=== PATIENT | female | born 1975 | race Two or more races ===

== ENCOUNTER 2020-12-21 12:14 | Outpatient (REF) | payer MEDICAID, SELFPAY | END 2020-12-21 12:15 | disposition home or self-care (01) | LOC: HO.LAB 12:14 | PROVIDERS: Visit Provider Internal Medicine | DX: Z20.822 Contact with and (suspected) exposure to COVID-19 (principal) | CPT/HCPCS: C9803; U0003; U0005 ==

== ENCOUNTER 2021-01-27 09:30 | Emergency (ER) | payer MEDICAID, SELFPAY ==
--- NOTE | ~2021-01-27 | CT_ITS ---
EXAMINATION: CT ABDOMEN AND PELVIS WITH CONTRAST CLINICAL INFORMATION: Left flank pain COMPARISON: None TECHNIQUE: Multidetector volumetric images were obtained from the superior aspect of the liver through the pubic symphysis following administration 85 mL of Omnipaque 350 intravenous contrast. Sagittal and coronal reformatted images were obtained on the technologist's workstation. Oral contrast: No This CT examination was performed using dose optimization techniques as appropriate, variously including the following: *Automated exposure control *Adjustment of mA and/or kV according to patient size (this includes techniques or standardized protocols for targeted exams where dose is matched to indication/reason for exam; i.e. extremities or head) *Use of iterative reconstruction technique DLP: 455 mGy-cm FINDINGS: LUNG BASES: Bibasilar atelectasis. The visualized cardiac structures are unremarkable. LIVER, GALLBLADDER, AND BILIARY TREE: The liver is normal in size, shape, and attenuation. No focal hepatic lesion or biliary ductal dilatation is present. The gallbladder is unremarkable with no evidence of radiopaque gallstones, gallbladder wall thickening, or obvious pericholecystic inflammatory changes. PANCREAS: Unremarkable. SPLEEN: Unremarkable. ADRENAL GLANDS: Unremarkable. KIDNEYS AND URETERS: The kidneys are normal in size, shape, and attenuation. No hydronephrosis, hydroureter, or calculi seen. No perinephric stranding. BLADDER: Unremarkable. GASTROINTESTINAL TRACT: The stomach is unremarkable. Normal caliber small bowel. No obstruction. No colonic wall thickening or inflammatory change. Normal appendix. No free air or free fluid. ABDOMINAL WALL: No significant hernia is appreciated. LYMPH NODES: Normal. VASCULAR: Unremarkable. PELVIC VISCERA: The uterus and adnexa are unremarkable. OSSEOUS STRUCTURES: No acute or suspicious osseous abnormality. Mild degenerative changes of the spine. CT/CT abdomen pelvis w con IMPRESSION: No acute findings in the abdomen or pelvis. No inflammatory changes.
[2021-01-27 09:53] VITALS: BP 142/118; PULSE 78; RESP 16; TEMP 36.8; O2SAT 98; BMI 26.4
[2021-01-27 10:12] LABS: Appearance Urine HAZY; Color Urine YELLOW; Glucose Urine UA NEG (NEG); Leukocyte Esterase Urine NEG (NEG); Nitrite Urine NEG (NEG); Specific Gravity - Urine >= 1.030 (1.005-1.025); UPreg QC Valid YES; Urine Blood NEG (NEG); Urine Ketones NEG (NEG); Urine Pregnancy NEGATIVE (NEGATIVE); Urine Protein NEG (NEG-TRACE)
[2021-01-27] MEDS: 0.9 % Sodium Chloride 1,000 ML 999 ML IV (10:19)
[2021-01-27] MEDS: Ketorolac Tromethamine 15 MG/ML VIAL 30 MG IVPUSH (10:21)
[2021-01-27 10:24] LABS: MANUAL DIFF FLAG NO
[2021-01-27 10:25] LABS: Basophils Percent Auto 0.5 % (0-2); Eosinophils Absolute Auto 0.4 X10*3/uL (0.0-0.4); Eosinophils Percent Auto 4.9 % (0-4); Hematocrit 34.5 % (37.0-47.0); Hemoglobin 11.4 g/dl (12.0-16.0); Imm Gran Abs Auto 0.02 X10*3/uL (0.00-0.03); Imm Gran Pct Auto 0.2 % (0.0-0.4); Lymphocytes Absolute Auto 2.1 X10*3/uL (1.2-4.9); Lymphocytes Percent Auto 24.9 % (20-40); Mean Corpuscular Hemoglobin 31.1 pg (27.0-33.0); Mean Corpuscular Volume 94.3 fL (80.0-98.0); Mean Platelet Volume 9.6 fL (9.4-12.3); Monocytes Absolute Auto 0.8 X10*3/uL (0.1-1.2); Monocytes Percent Auto 9.8 % (2-11); Neutrophils Percent Auto 59.7 % (45-73); Platelet Count 294 X10*3/uL (160-400); Red Blood Count 3.66 X10*6/uL (4.20-5.50); Red Cell Distribution Width 12.3 % (11.0-16.0); White Blood Count 8.4 X10*3/uL (4.8-10.8)
[2021-01-27 10:44] LABS: Alanine Aminotransferase 11 U/L (0-31); Albumin Level 3.8 g/dL (3.5-5.0); Alkaline Phosphatase 57 U/L (39-117); Anion Gap 10 (12-20); Aspartate Amino Transferase 16 U/L (5-31); Bilirubin Total 0.2 mg/dL (0.0-1.0); Blood Urea Nitrogen 9 mg/dL (9-16); Calcium 8.6 mg/dL (8.4-10.2); Carbon Dioxide 27 mmol/L (22-29); Chloride 105 mmol/L (96-108); Creatinine Clr Calc Pharmacy 59.2; Estimated Glomerular Filt Rate > 60; Glucose Random 86 mg/dL (60-115); Potassium 4.2 mmol/L (3.3-5.1); Sodium 138 mmol/L (135-145); Total Protein 6.5 g/dL (6.5-8.0)
--- NOTE | 2021-01-27 11:29 | ED_ITS ---
HPI - Female Genitourinary General Chief complaint: Urogenital-Female Stated complaint: flank pain, pain when urinating Time Seen by Provider: 01/27/21 09:49 Source: patient Mode of arrival: ambulatory Limitations: no limitations History of Present Illness HPI Narrative: Patient presents to ED for left flank radiating to lower abdomen with dysuria for the past 2 days. Patient has history of recurring kidney stone s. Patient states last kidney stone was around 10 years ago. Patient denies any chest pain, shortness of breath, vaginal bleeding, any recent trauma. Patient denies any diarrhea. Patient denies any vaginal discharge, vaginal bleeding, or vaginal lesions. Related Data Previous Rx's Medication Instructions Recorded cyclobenzaprine 10 mg tablet 10 mg PO TID PRN #18 tab 01/27/21 naproxen 500 mg tablet 500 mg PO BID PRN #20 tab 01/27/21 Allergies Allergy/AdvReac Type Severity Reaction Status Date / Time metoclopramide [From REGLAN] Allergy Intermediate ANAPHYLAXIS Unverified 12/10/19 19:47 Review of Systems Review of Systems: Yes all other systems are reviewed and are negative Constitutional: Constitutional: Reports as per HPI and Reports no additional constitutional complaints Eyes: Eyes: Reports as per HPI and Reports no additional eye complaints ENT: Reports system reviewed and no additional complaints, except as documented and Reports as per HPI Cardiovascular: Cardiovascular: Reports as per HPI and Reports no additional cardiovascular complaints Respiratory: Respiratory: Reports as per HPI and Reports no additional respiratory complaints Gastrointestinal: Gastrointestinal: Reports as per HPI, Reports no additional gastrointestinal complaints and Reports abdominal pain (Left flank pain) Genitourinary: Genitourinary: Reports no additional female genitourinary complaints and Reports as per HPI Musculoskeletal: Musculoskeletal: Reports no additional musculoskeletal complaints and Reports as per HPI Neurologic: Reports system reviewed and no additional complaints, except as documented and Reports as per HPI Psychiatric: Psychiatric: Reports no additional psychiatric complaints and Reports as per HPI [facility] Social History Social History Advance Directives: No Advance Directives Information Provided: Yes Advance Directives on File: No Physical Exam Vital Signs: Vital Signs: Last Vital Signs Temp 98.2 F 01/27/21 12:00 Pulse 78 01/27/21 12:00 Resp 18 01/27/21 12:00 BP 138/89 01/27/21 12:00 Pulse Ox 98 01/27/21 12:00 Body Mass Index 26.4 Const: General: cooperative, healthy appearing, comfortable, no acute distress, well developed, alert, awake and Physically active Orientation/consciousness: patient oriented x3 HENMT: Head: Yes normal to inspection, Yes No palpable skull fracture present, Yes normocephalic, Yes atraumatic and No abrasion Eyes: General: appearance normal, both eyes and all related structures Neck: Neck: Yes normal visual inspection, Yes full ROM, Yes no lymphadenopathy, Yes no meningeal signs, Yes trachea midline, Yes supple and No tender Chest: Chest palpation & inspection: normal inspection of the chest and normal palpation of entire chest wall Resp: Effort & Inspection: normal respiratory effort and able to speak in complete sentences Auscultation: clear to auscultation bilaterally Cardio: Jugular venous distension: no JVD Heart sounds: S1 normal heart sound present and S2 normal heart sound present GI: Inspection: Yes normal to inspection and No abdominal wall ecchymosis Palpation (GI): Soft to palpation, not firm, nontender, no guarding and not rigid : General: Yes CVA tenderness (left CVA) Back/Spine/Pelvis: Back: CVA tenderness (left CVA) Skin: General skin exam: no rashes or lesions noted and elasticity normal Neuro: General: patient oriented x3, gait normal, no meningeal signs and CN's II-XI intact bilaterally Cranial nerves: Yes CN's II-XII intact bilaterally Extrem: General: Yes normal to inspection and Yes full ROM Psych: Appearance: grossly normal, well kempt and not disheveled Course Course Course Narrative: Patient will have labs done and urine given pain medication. Also will be sent for CT scan. Reevaluation(s) Reevaluation #1: UA negative for blood per was sent for CT scan with IV contrast. Time: 11:50 Reevaluation #2: Labs are normal. Kidney function is normal. UA negative for UTI or blood. CT scan negative for kidney stones or any other etiology. Patient will be discharged with pain medications and muscle relaxer. Patient told to follow-up with PCP. Time: 13:42 MDM - Female Genitourinary MDM Narrative Medical decision making narrative: Flank pain Lab Data Result diagrams: 01/27/21 10:18 01/27/21 10:18 Labs: Lab Results 01/27/21 01/27/21 01/27/21 Range/Units 09:58 09:58 10:18 WBC 8.4 (4.8-10.8) X10*3/uL RBC 3.66 L (4.20-5.50) X10*6/uL Hgb 11.4 L (12.0-16.0) g/dl Hct 34.5 L (37.0-47.0) % MCV 94.3 (80.0-98.0) fL MCH 31.1 (27.0-33.0) pg MCHC 33.0 (31.0-35.0) g/dl RDW 12.3 (11.0-16.0) % Plt Count 294 (160-400) X10*3/uL MPV 9.6 (9.4-12.3) fL Immature Gran % (Auto) 0.2 (0.0-0.4) % Neut % (Auto) 59.7 (45-73) % Lymph % (Auto) 24.9 (20-40) % [place] % (Auto) 9.8 (2-11) % Eos % (Auto) 4.9 H (0-4) % Baso % (Auto) 0.5 (0-2) % Lymph # (Auto) 2.1 (1.2-4.9) X10*3/uL [place] # (Auto) 0.8 (0.1-1.2) X10*3/uL Eos # (Auto) 0.4 (0.0-0.4) X10*3/uL Baso # (Auto) 0.0 (0.0-0.2) X10*3/uL Abs Immat Gran (auto) 0.02 (0.00-0.03) X10*3/uL Absolute Neuts (auto) 5.0 (2.0-8.3) x10*3/uL Absolute Nucleated RBC 0.000 (0.0-0.012) X10*3/uL Nucleated RBC % (auto) 0.0 (0.0-0.2) /100WBC Sodium (135-145) mmol/L Potassium (3.3-5.1) mmol/L Chloride (96-108) mmol/L Carbon Dioxide (22-29) mmol/L Anion Gap (12-20) BUN (9-16) mg/dL Creatinine (0.5-1.4) mg/dL Estim Creat Clear Calc Estimated GFR Random Glucose (60-115) mg/dL Calcium (8.4-10.2) mg/dL Total Bilirubin (0.0-1.0) mg/dL AST (5-31) U/L ALT (0-31) U/L Alkaline Phosphatase (39-117) U/L Total Protein (6.5-8.0) g/dL Albumin (3.5-5.0) g/dL Urine Color YELLOW Urine Appearance HAZY Urine pH 6.0 (5.0-8.0) Ur Specific [place] >= 1.030 H (1.005-1.025) Urine Protein NEG (NEG-TRACE) MG/DL Urine Glucose (UA) NEG (NEG) MG/DL Urine Ketones NEG (NEG) MG/DL Urine Blood NEG (NEG) Urine Nitrite NEG (NEG) Ur Leukocyte Esterase NEG (NEG) Urine Test NEGATIVE (NEGATIVE) 01/27/21 Range/Units 10:18 WBC (4.8-10.8) X10*3/uL RBC (4.20-5.50) X10*6/uL Hgb (12.0-16.0) g/dl Hct (37.0-47.0) % MCV (80.0-98.0) fL MCH (27.0-33.0) pg MCHC (31.0-35.0) g/dl RDW (11.0-16.0) % Plt Count (160-400) X10*3/uL MPV (9.4-12.3) fL Immature Gran % (Auto) (0.0-0.4) % Neut % (Auto) (45-73) % Lymph % (Auto) (20-40) % [place] % (Auto) (2-11) % Eos % (Auto) (0-4) % Baso % (Auto) (0-2) % Lymph # (Auto) (1.2-4.9) X10*3/uL [place] # (Auto) (0.1-1.2) X10*3/uL Eos # (Auto) (0.0-0.4) X10*3/uL Baso # (Auto) (0.0-0.2) X10*3/uL Abs Immat Gran (auto) (0.00-0.03) X10*3/uL Absolute Neuts (auto) (2.0-8.3) x10*3/uL Absolute Nucleated RBC (0.0-0.012) X10*3/uL Nucleated RBC % (auto) (0.0-0.2) /100WBC Sodium 138 (135-145) mmol/L Potassium 4.2 (3.3-5.1) mmol/L Chloride 105 (96-108) mmol/L Carbon Dioxide 27 (22-29) mmol/L Anion Gap 10 L (12-20) BUN 9 (9-16) mg/dL Creatinine 1.00 (0.5-1.4) mg/dL Estim Creat Clear Calc 59.2 Estimated GFR > 60 Random Glucose 86 (60-115) mg/dL Calcium 8.6 (8.4-10.2) mg/dL Total Bilirubin 0.2 (0.0-1.0) mg/dL AST 16 (5-31) U/L ALT 11 (0-31) U/L Alkaline Phosphatase 57 (39-117) U/L Total Protein 6.5 (6.5-8.0) g/dL Albumin 3.8 (3.5-5.0) g/dL Urine Color Urine Appearance Urine pH (5.0-8.0) Ur Specific [place] (1.005-1.025) Urine Protein (NEG-TRACE) MG/DL Urine Glucose (UA) (NEG) MG/DL Urine Ketones (NEG) MG/DL Urine Blood (NEG) Urine Nitrite (NEG) Ur Leukocyte Esterase (NEG) Urine Test (NEGATIVE) Discharge Plan Discharge Clinical Impression: Flank pain Patient Disposition: Home, Self-Care Instructions: Flank Pain (ED) Additional Instructions: Your blood work came back normal. Urine negative for infection. CT scan came back negative for kidney stones or any kidney infection. You will be discharged with pain medication and muscle relaxer. Return to the ED immediately for worsening flank pain, blood in stool, shortness of breath, on flank pain, chest pain, hematuria, vaginal bleeding, vaginal discharge, abdominal pain, or any other concerning symptoms. Prescriptions: New naproxen 500 mg tablet 500 mg PO BID PRN (Reason: pain) Qty: 20 RF: 0 cyclobenzaprine 10 mg tablet 10 mg PO TID PRN (Reason: muscle spasm) Qty: 18 RF: 0 Stand Alone Forms: Work/School Release Interventions: ED Discharge Assessment Last Done: 01/27/21 14:17 Discharge Date/Time: 01/27/21 14:19 Print Language: Greek
[2021-01-27] MEDS: iohexoL 350 MG/ML 100 ML INFUS..BTL IV (11:43)
[2021-01-27 12:00] VITALS: BP 138/89; PULSE 78; RESP 18; TEMP 36.8; O2SAT 98
--- NOTE | 2021-01-27 12:48 | PC.NURSE ---
PT STATES FEELING BETTER, PAIN MOSTLY RESOLVED, CT COMPLETE, LABS ARE UNREMARKABLE. PROVIDER WILL UPDATE PATIENT WITH RESULTS
== END 2021-01-27 14:19 | disposition home or self-care (01) ==
PROVIDERS: Physician Assistant; Emergency Provider Emergency Medicine
DX: R10.9 Unspecified abdominal pain (principal); R30.0 Dysuria
CPT/HCPCS: 36415; 74177; 80053; 81003; 81025; 85025; 96361; 96374; 99284; J1885; Q9967

== ENCOUNTER 2021-09-23 01:14 | Emergency (ER) | payer MEDICAID, SELFPAY ==
--- NOTE | 2021-09-23 | ECG_ITS ---
Test Reason : chest pain Blood Pressure : / mmHG Vent. Rate : 083 BPM Atrial Rate : 083 BPM P-R Int : 122 ms QRS Dur : 092 ms QT Int : 408 ms P-R-T Axes : 053 013 044 degrees QTc Int : 479 ms Normal sinus rhythm Normal ECG No previous ECGs available Referred By: Generic ED Physician Electronically Signed By:KEO DUPREE
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
--- NOTE | ~2021-09-23 | XR_ITS ---
EXAMINATION: XR CHEST CLINICAL INFORMATION: Chest pain COMPARISON: None TECHNIQUE: Frontal view of the chest was obtained. FINDINGS: The lungs are well expanded. There is no focal consolidation, edema, or effusion. No pneumothorax. The cardiomediastinal silhouette is within normal limits. No acute osseous abnormality. There is a corticated ossific density in the right subcoracoid bursa, likely an intra-articular body. This measures 1.8 cm. XR/XR chest 1V IMPRESSION: Clear lungs.
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
[2021-09-23 01:26] VITALS: BP 157/87; PULSE 96; RESP 20; TEMP 36.6; O2SAT 98; BMI 27.3
[2021-09-23 01:51] LABS: MANUAL DIFF FLAG NO
[2021-09-23 01:53] LABS: Basophils Absolute Auto 0.1 X10*3/uL (0.0-0.2); Basophils Percent Auto 0.7 % (0-2); Eosinophils Absolute Auto 0.2 X10*3/uL (0.0-0.4); Eosinophils Percent Auto 2.5 % (0-4); Hematocrit 35.1 % (37.0-47.0); Hemoglobin 11.7 g/dl (12.0-16.0); Imm Gran Abs Auto 0.02 X10*3/uL (0.00-0.03); Imm Gran Pct Auto 0.3 % (0.0-0.4); Lymphocytes Percent Auto 27.4 % (20-40); Mean Corpuscular HGB Conc 33.3 g/dl (31.0-35.0); Mean Corpuscular Hemoglobin 30.2 pg (27.0-33.0); Mean Corpuscular Volume 90.7 fL (80.0-98.0); Mean Platelet Volume 9.4 fL (9.4-12.3); Monocytes Absolute Auto 0.7 X10*3/uL (0.1-1.2); Monocytes Percent Auto 9.6 % (2-11); Neutrophils Absolute Auto 4.3 x10*3/uL (2.0-8.3); Neutrophils Percent Auto 59.5 % (45-73); Platelet Count 343 X10*3/uL (160-400); Red Blood Count 3.87 X10*6/uL (4.20-5.50); Red Cell Distribution Width 12.7 % (11.0-16.0); White Blood Count 7.3 X10*3/uL (4.8-10.8)
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
[2021-09-23 02:08] LABS: Anion Gap 10 (12-20); Blood Urea Nitrogen 15 mg/dL (9-16); Calcium 9.6 mg/dL (8.4-10.2); Carbon Dioxide 30 mmol/L (22-29); Chloride 104 mmol/L (96-108); Creatinine Clr Calc Pharmacy 64.2; Estimated Glomerular Filt Rate > 60; Glucose Random 90 mg/dL (60-115); Potassium 4.4 mmol/L (3.3-5.1); Sodium 140 mmol/L (135-145)
== END 2021-09-23 03:48 | disposition home or self-care (01) ==
PROVIDERS: Emergency Provider Emergency Medicine
DX: S20.212A Contusion of left front wall of thorax, initial encounter (principal); S16.1XXA Strain of muscle, fascia and tendon at neck level, initial encounter; V43.52XA Car driver injured in collision with other type car in traffic accident, initial encounter; Y93.89 Activity, other specified; Y92.414 Local residential or business street as the place of occurrence of the external cause; Y99.9 Unspecified external cause status
CPT/HCPCS: 36415; 71045; 71250; 72125; 80048; 85025; 93005; 99283; 99284

== ENCOUNTER 2021-10-23 12:29 | Emergency (ER) | payer MEDICAID, SELFPAY | END 2021-10-23 16:02 | disposition left against medical advice (07) | PROVIDERS: Emergency Provider Emergency Medicine | DX: R51.9 Headache, unspecified (principal) ==

== ENCOUNTER 2021-11-17 15:20 | Emergency (ER) | payer MEDICAID, SELFPAY | END 2021-11-17 17:51 | disposition left against medical advice (07) | PROVIDERS: Emergency Provider Emergency Medicine | DX: R25.2 Cramp and spasm (principal) ==

== ENCOUNTER 2021-12-29 16:33 | Emergency (ER) | payer MEDICAID, SELFPAY | END 2021-12-29 20:43 | disposition left against medical advice (07) | PROVIDERS: Emergency Provider Emergency Medicine | DX: Z04.9 Encounter for examination and observation for unspecified reason (principal) ==

== ENCOUNTER 2022-01-26 21:47 | Emergency (ER) | payer MEDICAID, SELFPAY ==
[2022-01-26 21:54] VITALS: BP 129/80; PULSE 80; RESP 18; TEMP 36.1; O2SAT 96; BMI 23.5
== END 2022-01-27 01:58 | disposition left against medical advice (07) ==
PROVIDERS: Emergency Provider Emergency Medicine
DX: R10.30 Lower abdominal pain, unspecified (principal); N92.6 Irregular menstruation, unspecified
CPT/HCPCS: 99281

== ENCOUNTER 2022-02-18 21:50 | Emergency (ER) | payer MEDICAID, SELFPAY | END 2022-02-18 23:00 | disposition left against medical advice (07) | LOC: HO.ED 22:59 | PROVIDERS: Emergency Provider Emergency Medicine | DX: G43.909 Migraine, unspecified, not intractable, without status migrainosus (principal) ==

== ENCOUNTER 2022-03-01 21:50 | Emergency (ER) | payer MEDICAID, SELFPAY | END 2022-03-01 23:07 | disposition left against medical advice (07) | LOC: HO.ED 23:05 | PROVIDERS: Emergency Provider Emergency Medicine | DX: R51.9 Headache, unspecified (principal) ==

== ENCOUNTER 2022-04-12 10:00 | Emergency (ER) | payer MEDICAID, SELFPAY ==
[2022-04-12 10:11] VITALS: BP 130/82; PULSE 100; RESP 19; TEMP 36.6; O2SAT 100; BMI 23.4
--- NOTE | 2022-04-12 11:35 | PC.NURSE ---
pt called from the waiting room for the second time but no answer
== END 2022-04-12 11:53 | disposition left against medical advice (07) ==
LOC: HO.ED 11:50
PROVIDERS: Emergency Provider Emergency Medicine
DX: R51.9 Headache, unspecified (principal)
CPT/HCPCS: 99281

== ENCOUNTER 2022-04-14 11:37 | Emergency (ER) | payer MEDICAID, SELFPAY ==
--- NOTE | ~2022-04-14 | CT_ITS ---
CT HEAD WITHOUT CONTRAST CLINICAL INFORMATION: Headache. COMPARISON: None available. TECHNIQUE: Contiguous axial imaging was performed from the skull base to vertex without intravenous administration of contrast. This CT examination was performed using dose optimization techniques as appropriate, variously including the following: *Automated exposure control *Adjustment of mA and/or kV according to patient size (this includes techniques or standardized protocols for targeted exams where dose is matched to indication/reason for exam; i.e. extremities or head) *Use of iterative reconstruction technique FINDINGS: There is no intracranial hemorrhage, hydrocephalus, extra-axial surface collection, midline shift, or other herniation pattern. Garcia to white matter differentiation is diffusely maintained without evidence of an evolved acute territorial infarct. The basilar cisterns are preserved. No significant soft tissue abnormality. No acute osseous abnormality. The paranasal sinuses and the mastoid air cells are well aerated. CT/CT head/brain wo IV con IMPRESSION: No acute intracranial abnormality.
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
[2022-04-14 11:49] VITALS: BP 135/84; PULSE 72; RESP 16; TEMP 36.8; O2SAT 98; BMI 23.4
[2022-04-14] MEDS: Ketorolac Tromethamine 30 MG/ML VIAL IM (13:47)
[2022-04-14] MEDS: Acetaminophen 325 MG TABLET 975 MG PO (13:47)
== END 2022-04-14 14:11 | disposition home or self-care (01) ==
PROVIDERS: Emergency Provider Emergency Medicine
DX: Z04.1 Encounter for examination and observation following transport accident (principal); R51.9 Headache, unspecified; Z79.899 Other long term (current) drug therapy
CPT/HCPCS: 70450; 96372; 99283; 99284; J1885

== ENCOUNTER 2022-05-23 23:52 | Emergency (ER) | payer MEDICAID, SELFPAY ==
[2022-05-24 00:22] VITALS: BP 128/74; PULSE 82; RESP 18; TEMP 36.4; O2SAT 97; BMI 23.4
[2022-05-24 05:27] VITALS: BP 119/69; RESP 16; TEMP 36.2; O2SAT 98
--- NOTE | 2022-05-24 05:28 | MHC.EDTECH ---
PT WAS CALLED BACK TO TRIAGE TO RE CHECK VITALS SIGN ,PT WAS GIVEN A MARISSA ANAIS AND ALISSA CRACKER.
--- NOTE | 2022-05-24 07:15 | MHC.EDTECH ---
called patient at 0713 and there was no answer.
--- NOTE | 2022-05-24 08:34 | MHC.EDTECH ---
triage nurse found patient sleeping in the waiting room. Patient will be called back next.
[2022-05-24 08:35] VITALS: BP 121/68; PULSE 58; RESP 18; TEMP 36.6; O2SAT 100
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
--- NOTE | 2022-05-24 09:48 | PC.NURSE ---
pt is not at bedside, this rn went into the waiting room and called pt's name x 3 and no answer. pt is not in any of the bathrooms as well.
== END 2022-05-24 09:51 | disposition left against medical advice (07) ==
PROVIDERS: Emergency Provider Student in an Organized Health Care Education/Training Program
DX: G43.909 Migraine, unspecified, not intractable, without status migrainosus (principal)
CPT/HCPCS: 99282; 99284

== ENCOUNTER 2022-06-06 17:04 | Emergency (ER) | payer MEDICAID, SELFPAY ==
[2022-06-06 17:18] VITALS: BP 135/70; PULSE 107; RESP 16; TEMP 36.8; O2SAT 95; BMI 23.4
[2022-06-06 19:04] LABS: MANUAL DIFF FLAG NO
[2022-06-06 19:07] LABS: Basophils Percent Auto 0.4 % (0-2); Eosinophils Percent Auto 0.3 % (0-4); Hematocrit 35.7 % (37.0-47.0); Hemoglobin 11.7 g/dl (12.0-16.0); Imm Gran Abs Auto 0.01 X10*3/uL (0.00-0.03); Imm Gran Pct Auto 0.1 % (0.0-0.4); Lymphocytes Absolute Auto 1.4 X10*3/uL (1.2-4.9); Lymphocytes Percent Auto 20.7 % (20-40); Mean Corpuscular HGB Conc 32.8 g/dl (31.0-35.0); Mean Corpuscular Hemoglobin 29.6 pg (27.0-33.0); Mean Corpuscular Volume 90.4 fL (80.0-98.0); Mean Platelet Volume 9.4 fL (9.4-12.3); Monocytes Absolute Auto 0.5 X10*3/uL (0.1-1.2); Monocytes Percent Auto 7.2 % (2-11); Neutrophils Absolute Auto 4.9 x10*3/uL (2.0-8.3); Neutrophils Percent Auto 71.3 % (45-73); Platelet Count 319 X10*3/uL (160-400); Red Blood Count 3.95 X10*6/uL (4.20-5.50); Red Cell Distribution Width 12.6 % (11.0-16.0); White Blood Count 6.9 X10*3/uL (4.8-10.8)
[2022-06-06 19:33] LABS: Alanine Aminotransferase 17 U/L (0-31); Albumin Level 4.3 g/dL (3.5-5.0); Alkaline Phosphatase 72 U/L (39-117); Anion Gap 12 (12-20); Aspartate Amino Transferase 25 U/L (5-31); Bilirubin Direct < 0.2 mg/dL (0.0-0.5); Bilirubin Total 0.5 mg/dL (0.0-1.0); Blood Urea Nitrogen 25 mg/dL (9-16); Calcium 9.4 mg/dL (8.4-10.2); Carbon Dioxide 29 mmol/L (22-29); Chloride 105 mmol/L (96-108); Creatinine Clr Calc Pharmacy 54.2; Estimated Glomerular Filt Rate > 60; Glucose Random 98 mg/dL (60-115); Lipase 7 U/L (8-78); Magnesium 2.2 mg/dL (1.6-2.6); Potassium 4.6 mmol/L (3.3-5.1); Sodium 141 mmol/L (135-145); Total Protein 7.4 g/dL (6.5-8.0)
== END 2022-06-06 20:01 | disposition left against medical advice (07) ==
PROVIDERS: Emergency Provider Emergency Medicine
DX: R10.13 Epigastric pain (principal); Z79.899 Other long term (current) drug therapy
CPT/HCPCS: 36415; 80048; 80076; 83690; 83735; 85025; 99282; 99283

== ENCOUNTER 2022-12-03 12:34 | Emergency (ER) | payer MEDICAID, SELFPAY ==
[2022-12-03 12:56] VITALS: BP 142/79; PULSE 83; RESP 18; TEMP 36.7; O2SAT 98; BMI 22.8
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
== END 2022-12-03 13:09 | disposition home or self-care (01) ==
PROVIDERS: Emergency Provider Student in an Organized Health Care Education/Training Program
DX: S16.1XXA Strain of muscle, fascia and tendon at neck level, initial encounter (principal); S13.4XXA Sprain of ligaments of cervical spine, initial encounter; V43.52XA Car driver injured in collision with other type car in traffic accident, initial encounter; Y93.9 Activity, unspecified; Y92.410 Unspecified street and highway as the place of occurrence of the external cause; Y99.9 Unspecified external cause status
CPT/HCPCS: 99282; 99283

== ENCOUNTER 2023-02-04 09:47 | Emergency (ER) | payer SELFPAY ==
--- NOTE | ~2023-02-04 | CT_ITS ---
EXAMINATION: CT HAND WITH CONTRAST, RIGHT CLINICAL INFORMATION: Swelling, pain, IVDA, evaluate for abscess versus tenosynovitis. COMPARISON: None available. TECHNIQUE: Axial imaging. Sagittal and coronal reconstructions. 85 mL Omnipaque 350. This CT examination was performed using dose optimization techniques as appropriate, variously including the following: *Automated exposure control *Adjustment of mA and/or kV according to patient size (this includes techniques or standardized protocols for targeted exams where dose is matched to indication/reason for exam; i.e. extremities or head) *Use of iterative reconstruction technique DLP: 109 mGy-cm FINDINGS: There is marked dorsal soft tissue swelling of the hand, with prominent soft tissue/subcutaneous edema, skin thickening. This proximally extends to the level of the distal forearm, proximally extending beyond the [id number]. There is otherwise circumferential soft tissue swelling and subcutaneous edema, to lesser degree. In the dorsal soft tissues/subcutaneous tissues of the hand, at the level of the metacarpals, is a focus of the combination of enhancement and foci of air. This overall measures approximately 0.9 cm AP, 2.1 cm transverse, 1.6 cm in length. This appears to extend to the dorsal skin, which could represent a sinus tract. Series 9:109-124, series 7:49-59, series 8:65-85. Findings are suspicious for an infectious process, could represent phlegmonous change or abscess. The deep surface of abnormality appears to abut and possibly involve the underlying coursing extensor tendons. Small peritendinous edema/fluid/tenosynovitis in this region cannot be excluded. No significant tenosynovitis is otherwise evident by CT. No prominent interfascial fluid is identified by CT. No acute fracture is seen. No findings to suggest definite osteomyelitis. CT/CT hand RT w IV con IMPRESSION: Marked dorsal soft tissue swelling of the hand. There is an abnormal focus of enhancement and air in the dorsal soft tissue/subcutaneous tissues measuring 0.9 x 2.1 x 1.6 cm. Superficially, this appears to extend to the skin, suggesting a possible sinus tract. The deep surface of this abuts and possibly involves the underlying extensor tendons. Small peritendinous edema/fluid/tenosynovitis in this region cannot be excluded. Findings are suspicious for an infectious process, and could represent phlegmonous change or abscess.
[2023-02-04 10:48] VITALS: BP 150/71; PULSE 88; RESP 18; TEMP 36.6; O2SAT 99; BMI 21.5
--- NOTE | 2023-02-04 11:24 | ED_ITS ---
HPI - Skin/Abscess/Foreign Bdy General Chief complaint: Skin/Abscess/Foreign Body Stated complaint: Cyst Time Seen by Provider: 02/04/23 10:54 Source: patient Mode of arrival: ambulatory Limitations: no limitations History of Present Illness HPI narrative: 47-year-old female with a history of IV drug abuse presents to the ER with complaints of swelling, redness and pain to the right upper extremity. Patient reports she is right-hand dominant. Patient reports she injected heroin and cocaine into her left hand several days ago and now has swelling, pain and redness. She denies any fevers or chills. She is currently on methadone. Related Data Previous Rx's Medication Instructions Recorded cyclobenzaprine 10 mg tablet 10 mg PO TID PRN muscle spasm #18 01/27/21 tabs naproxen 500 mg tablet 500 mg PO BID PRN pain #20 tabs 01/27/21 cyclobenzaprine 10 mg tablet 10 mg PO TID PRN muscle spasm #14 09/23/21 tabs ibuprofen 600 mg tablet 600 mg PO Q6H PRN pain #30 tabs 09/23/21 lidocaine 4 % topical patch 1 patch topical DAILY PRN pain #10 09/23/21 ea acetaminophen 500 mg capsule 1,000 mg (2 x 500 mg) PO TID PRN 04/14/22 pain #20 caps oxycodone 5 mg tablet 5 mg PO Q6H PRN pain #10 tabs 04/14/22 [id number] 1 cap PO TID PRN headache #8 caps 05/24/22 50 mg-300 mg-40 mg capsule (Fioricet) cyclobenzaprine 10 mg tablet 10 mg PO TID PRN muscle spasm #14 12/03/22 tabs lidocaine 5 % topical patch 1 patch topical DAILY #15 ea 12/03/22 cephalexin 500 mg capsule 500 mg PO BID #20 caps 02/04/23 doxycycline monohydrate 100 mg 100 mg PO BID #20 caps 02/04/23 capsule Allergies Allergy/AdvReac Type Severity Reaction Status Date / Time metoclopramide [From REGLAN] Allergy Intermediate ANAPHYLAXIS Verified 06/06/22 17:18 Review of Systems 2 Review of Systems: Yes all other systems are reviewed and are negative Constitutional: Constitutional: Reports no additional constitutional complaints, Denies body ache(s), Denies chills, Denies fever(s), Denies headache(s) and Denies weakness Eyes: Eyes: Reports no additional eye complaints and Denies change in vision ENT: Reports system reviewed and no additional complaints, except as documented, Denies dizziness, Denies headache(s), Denies nasal congestion, Denies nasal discharge and Denies neck pain Cardiovascular: Cardiovascular: Reports no additional cardiovascular complaints, Denies chest pain, Denies leg edema and Denies dyspnea Respiratory: Respiratory: Reports no additional respiratory complaints, Denies cough and Denies dyspnea Gastrointestinal: Gastrointestinal: Reports no additional gastrointestinal complaints, Denies abdominal pain, Denies diarrhea, Denies nausea and Denies vomiting Genitourinary: Genitourinary: Reports no additional female genitourinary complaints and Denies urinary incontinence Musculoskeletal: Musculoskeletal: Reports no additional musculoskeletal complaints, Denies back pain, Reports arthralgias, Reports joint swelling, Denies neck pain, Denies numbness and Denies tingling Integumentary/Breasts: Skin/Breast: Reports system reviewed and no additional complaints, except as docu, Reports furuncle, Reports swelling, Reports erythema and Denies rash Neurologic: Reports system reviewed and no additional complaints, except as documented, Denies Abnormal speech present, Denies dizziness, Denies headache(s), Denies numbness, Denies tingling and Denies weakness PMFSH Past Medical History Attestation statement: The following information was validated with the patient. Source: old records reviewed and nursing notes reviewed Medical History No pertinent past medical history Social History Social History Alcohol intake: never Patient Tobacco Use Status: Never used Tobacco Advance Directives: No Advance Directives Information Provided: Yes Physical Exam 2 Vital Signs: Vital Signs: Last Vital Signs Temp 97 F 02/04/23 16:02 Pulse 71 02/04/23 16:02 Resp 15 02/04/23 16:02 BP 131/73 02/04/23 16:02 Pulse Ox 100 02/04/23 16:02 O2 Del Method Room Air 02/04/23 16:02 BMI result Body Mass Index 21.5 Const: General: cooperative, healthy appearing, comfortable and no acute distress Orientation/consciousness: patient oriented x3 Limitations: no limitations HEENT: Head: Yes normal to inspection Ears: hearing grossly normal bilaterally General nose exam: Normal external nose present Face and sinus: Yes normal facial exam Mouth: Normal oral and palatal mucosa present Throat: Yes posterior oropharynx normal Eyes: General: appearance normal, both eyes and all related structures P upils: Equal, round and reactive pupils present Neck: Neck: Yes normal visual inspection Chest: Chest palpation & inspection: normal inspection of the chest Resp: Effort & Inspection: normal respiratory effort Auscultation: clear to auscultation bilaterally Cardio: Rate: regular rate Rhythm: regular rhythm Peripheral pulses: P eripheral pulses 2+ throughout GI: Inspection: Yes normal to inspection Palpation (GI): Soft to palpation and nontender Auscultation: normal bowel sounds Back/Spine/Pelvis: Thoracic/Lumbar Spine: thoracic and lumbar spine normal to inspection Skin: General skin exam: no rashes or lesions noted Neuro: General: patient oriented x3, no focal motor deficits and normal sensation to monofilament Cranial nerves: Yes Equal, round and reactive pupils present Cognition (Neuro): normal cognition Speech: No Abnormal speech present Gait exam (Neuro): Normal gait present Motor exam (neuro): 5/5 motor strength present throughout Extrem: Other: Patient has limited active range of motion of the right wrist and hand. She has significant pain with flexion and extension of the wrist. She has palpable radial and ulnar pulses. Normal sensation. She has swelling and tenderness extending to the right elbow. General: Yes normal to inspection Course Course Course Narrative: reviewed findings with the patient. She will be willing to return 48 hours for wound check. She will take the antibiotics as prescribed. She is aware the recommendation is for her to be admitted. She will leave against medical advice. She is welcome to return at any time. Medications Administered Discontinued Medications Generic Name Dose Route Start Last Admin Trade Name Freq PRN Reason Stop Dose Admin Sodium Chloride 1,000 mls @ 999 mls/hr 02/04/23 11:15 02/04/23 15:45 Ns IV 02/04/23 12:15 Infused .Q1H1M CLINT Infusion Piperacillin Sod/Tazobactam 50 mls @ 100 mls/hr 02/04/23 11:11 02/04/23 12:58 Sod 3.375 gm/ Sodium Chloride IV 02/04/23 11:40 Infused ONCE ONE Infusion Vancomycin HCl 1,250 mg/ 250 mls @ 166.667 mls/hr 02/04/23 11:11 02/04/23 15:45 Sodium Chloride IV 02/04/23 12:40 Infused ONCE ONE Infusion Iohexol 85 ml 02/04/23 13:09 02/04/23 13:10 Iohexol 350 Mg/Ml 100 Ml Infus..Btl IV 02/04/23 13:10 85 ml ONCE ONE Administration Ketorolac Tromethamine 30 mg 02/04/23 11:15 02/04/23 12:33 Ketorolac Tromethamine 30 Mg/Ml Vial IVPUSH 02/04/23 11:16 30 mg ONCE ONE Administration Lidocaine HCl 1 appl 02/04/23 11:12 02/04/23 11:36 Lidocaine 4 % Cream Kit TOPICAL 02/04/23 11:13 1 appl ONCE ONE Administration Protocol Lidocaine HCl 2 ml 02/04/23 11:14 02/04/23 12:46 Lidocaine Hcl 1 % Mpf 2 Ml Vial INFILTRATI 02/04/23 11:15 2 ml ONCE ONE Administration Medical Decision Making Medical Decision Making MDM Narrative: 47-year-old female with a history of IV drug abuse presents to the ER with complaints of swelling, redness and pain to the right upper extremity. Patient reports she is right-hand dominant. Patient reports she injected heroin and cocaine into her left hand several days ago and now has swelling, pain and redness. She denies any fevers or chills. She is currently on methadone. See pictures in physical exam Patient has limited active range of motion of the right wrist and hand. She has significant pain with flexion and extension of the wrist. She has palpable radial and ulnar pulses. Normal sensation. She has swelling and tenderness extending to the right elbow. patient obviously has an abscess with subsequent cellulitis. she has very limited range of motion of the hand and wrist with significant amount of pain on exam and I am concerned that she also has subsequent tenosynovitis and or septic arthritis. the patient should be admitted however she has a history of IV drug abuse and will not be admitted and will leave against medical advice. We spoke extensively about how she may lose function of her hand and wrist which is her dominant hand. We also spoke about sepsis and held this may cause further issues as well as potentially . Patient is willing to have labs, IV antibiotics and imaging of her hand and wrist but will not stay in the hospital for further management. Therefore I will obtain labs including blood cultures and lactic acid, CT of the hand and wrist to eval for deeper space infection and she will be given IV antibiotics Differential Diagnosis Differential Diagnoses: The differential diagnosis associated with the presentation includes abscess, cellulitis, necrotizing fasciitis, compartment syndrome, septic arthritis, tenosynovitis, sepsis Admission/Observation Consideration of admission/observation: Escalation of care including admission/observation considered There is extensive cellulitis with an abscess and concern on CT for tenosynovitis in the patient's dominant hand. Recommendation would be for admission and IV antibiotics orthopedic consultation but patient plans on leaving against medical advice. Lab Data MDM Lab Attestation statement: I reviewed the patient's lab results. Mild leukocytosis 02/04/23 12:11 02/04/23 12:11 Labs: Lab Results 02/04/23 02/04/23 Range/Units 12:11 14:34 WBC 11.9 H (4.8-10.8) X10*3/uL RBC 3.59 L (4.20-5.50) X10*6/uL Hgb 10.3 L (12.0-16.0) g/dl Hct 31.8 L (37.0-47.0) % MCV 88.6 (80.0-98.0) fL MCH 28.7 (27.0-33.0) pg MCHC 32.4 (31.0-35.0) g/dl RDW 12.5 (11.0-16.0) % Plt Count 371 (160-400) X10*3/uL MPV 9.4 (9.4-12.3) fL Immature Gran % (Auto) 0.4 (0.0-0.4) % Neut % (Auto) 82.3 H (45-73) % Lymph % (Auto) 10.6 L (20-40) % [place] % (Auto) 6.0 (2-11) % Eos % (Auto) 0.5 (0-4) % Baso % (Auto) 0.2 (0-2) % Lymph # (Auto) 1.3 (1.2-4.9) X10*3/uL [place] # (Auto) 0.7 (0.1-1.2) X10*3/uL Eos # (Auto) 0.1 (0.0-0.4) X10*3/uL Baso # (Auto) 0.0 (0.0-0.2) X10*3/uL Abs Immat Gran (auto) 0.05 H (0.00-0.03) X10*3/uL Absolute Neuts (auto) 9.8 H (2.0-8.3) x10*3/uL Absolute Nucleated RBC 0.000 (0.0-0.012) X10*3/uL Nucleated RBC % (auto) 0.0 (0.0-0.2) /100WBC Sodium 139 (135-145) mmol/L Potassium 3.9 (3.3-5.1) mmol/L Chloride 104 (96-108) mmol/L Carbon Dioxide 26 (22-29) mmol/L Anion Gap 13 (12-20) BUN 17 H (9-16) mg/dL Creatinine 0.74 (0.5-1.4) mg/dL Estim Creat Clear Calc 68.9 Estimated GFR > 60 Random Glucose 88 (60-115) mg/dL Lactic Acid 0.8 (0.5-2.0) mmol/L Calcium 9.2 (8.4-10.2) mg/dL Total Bilirubin 0.3 (0.0-1.0) mg/dL Direct Bilirubin 0.2 (0.0-0.5) mg/dL AST 17 (5-31) U/L ALT 10 (0-31) U/L Alkaline Phosphatase 73 (39-117) U/L Total Creatine Kinase 114 (26-140) U/L Total Protein 7.7 (6.5-8.0) g/dL Albumin 3.6 (3.5-5.0) g/dL Beta HCG, Quant 15 mIU/mL Urine Color Yellow Urine Appearance Clear Urine pH 5.5 (5.0-9.0) Ur Specific [place] >= 1.030 H (1.005-1.025) Urine Protein 30 (1+) H (Neg-Trace) mg/dL Urine Glucose (UA) Negative (Negative) mg/dL Urine Ketones Negative (Negative) mg/dL Urine Blood Negative (Negative) Urine Nitrite Negative (Negative) Ur Leukocyte Esterase Negative (Negative) Urine RBC 0-2 (0-2) /HPF Urine WBC 0-5 (0-5) /HPF Ur Squamous Epith Cells 11-20 (0-2) /HPF Urine Bacteria 2+ (None Seen) Hyaline Casts 0-2 (0-2) /LPF Urine Test NEGATIVE (NEGATIVE) Independent Interpretation I performed an independent interpretation of an: CT Scan Interpretation: I independently reviewed the CT scan agree with the radiology report Radiology Impression Discussion of test interpretation with radiology: I have reviewed the radiologist's reading. Radiologist Impression: [address] [address] [address] Scan Report Signed Patient: Ya Weaver MR#: [id number] : 1975 Acct:[id number] Age/Sex: 47 / F ADM Date: 02/04/23 Loc: .ED Attending Dr: Ordering Physician: Michelle Portillo NP Date of Service: 02/04/23 Procedure(s): CT hand RT w IV con Accession Number(s): [id number] cc: [facility]; Michelle Portillo NP~ EXAMINATION: CT HAND WITH CONTRAST, RIGHT CLINICAL INFORMATION: Swelling, pain, IVDA, evaluate for abscess versus tenosynovitis. COMPARISON: None available. TECHNIQUE: Axial imaging. Sagittal and coronal reconstructions. 85 mL Omnipaque 350. This CT examination was performed using dose optimization techniques as appropriate, variously including the following: *Automated exposure control *Adjustment of mA and/or kV according to patient size (this includes techniques or standardized protocols for targeted exams where dose is matched to indication/reason for exam; i.e. extremities or head) *Use of iterative reconstruction technique DLP: 109 mGy-cm FINDINGS: There is marked dorsal soft tissue swelling of the hand, with prominent soft tissue/subcutaneous edema, skin thickening. This proximally extends to the level of the distal forearm, proximally extending beyond the [id number]. There is otherwise circumferential soft tissue swelling and subcutaneous edema, to lesser degree. In the dorsal soft tissues/subcutaneous tissues of the hand, at the level of the metacarpals, is a focus of the combination of enhancement and foci of air. This overall measures approximately 0.9 cm AP, 2.1 cm transverse, 1.6 cm in length. This appears to extend to the dorsal skin, which could represent a sinus tract. Series 9:109-124, series 7:49-59, series 8:65-85. Findings are suspicious for an infectious process, could represent phlegmonous change or abscess. The deep surface of abnormality appears to abut and possibly involve the underlying coursing extensor tendons. Small peritendinous edema/fluid/tenosynovitis in this region cannot be excluded. No significant tenosynovitis is otherwise evident by CT. No prominent interfascial fluid is identified by CT. No acute fracture is seen. No findings to suggest definite osteomyelitis. CT/CT hand RT w IV con IMPRESSION: Marked dorsal soft tissue swelling of the hand. There is an abnormal focus of enhancement and air in the dorsal soft tissue/subcutaneous tissues measuring 0.9 x 2.1 x 1.6 cm. Superficially, this appears to extend to the skin, suggesting a possible sinus tract. The deep surface of this abuts and possibly involves the underlying extensor tendons. Small peritendinous edema/fluid/tenosynovitis in this region cannot be excluded. Findings are suspicious for an infectious process, and could represent phlegmonous change or abscess. Prescription Management I considered prescription management with: Antibiotic Social Determinants Patient?s care significantly limited by Social Determinants of Health including: Alcoholism and drug addiction in family and Other Social Determinant of Health Procedures Abscess I/D Site: hand Side (if applicable): right Local Anesthetic: lidocaine 1% Amount of anesthesia used (mL): 3 Technique: incised with blade Sent for culture/gram staining?: Yes Packing used?: iodoform Discharge Plan Discharge Clinical Impression: Abscess of skin or subcutaneous tissue, Cellulitis Patient Disposition: Left Against Medical Advice Instructions: Abscess (ED), Against Medical Advice (ED) Additional Instructions: we discussed that we are quite concerned that you have an extensive infection in your arm and hand. It also appears that the tendons in your hands may also be infected. The recommendation would be for you to be admitted to the hospital to receive IV antibiotics for a period of time. You declined this. You are aware that if this goes untreated you may lose function of your hand and arm, you may have worsening infection and this could subsequently lead to your . Please take the antibiotics as prescribed Please return in 48 hours for packing removal and wound check You are welcome to return at any time if you change your mind. Prescriptions: New doxycycline monohydrate 100 mg capsule 100 mg PO BID Qty: 20 0RF cephalexin 500 mg capsule 500 mg PO BID Qty: 20 0RF No Action cyclobenzaprine 10 mg tablet 10 mg PO TID PRN (Reason: muscle spasm) Qty: 14 0RF lidocaine 4 % adhesive patch,medicated 1 patch topical DAILY PRN (Reason: pain) Qty: 10 0RF Rx Instructions: may leave on for up to 12 hrs ibuprofen 600 mg tablet 600 mg PO Q6H PRN (Reason: pain) Qty: 30 0RF acetaminophen 500 mg capsule 1,000 mg PO TID PRN (Reason: pain) Qty: 20 0RF oxycodone 5 mg tablet 5 mg PO Q6H PRN (Reason: pain) Qty: 10 0RF Rx Instructions: Partial Fill upon patient request. naproxen 500 mg tablet 500 mg PO BID PRN (Reason: pain) Qty: 20 0RF cyclobenzaprine 10 mg tablet 10 mg PO TID PRN (Reason: muscle spasm) Qty: 18 0RF Rx Instructions: side effect is drowsiness. Do not take at work or while driving. ezuvvqfhxu-[id number]-[id number] [Fioricet] 50-300-40 mg capsule 1 cap PO TID PRN (Reason: headache) Qty: 8 0RF cyclobenzaprine 10 mg tablet 10 mg PO TID PRN (Reason: muscle spasm) Qty: 14 0RF lidocaine 5 % adhesive patch,medicated 1 patch topical DAILY Qty: 15 0RF Rx Instructions: leave on most painful area for up to 12 hrs Referrals: [facility] [Primary Care Provider] - 1 week Stand Alone Forms: Against Medical Advice
[2023-02-04] MEDS: Lidocaine 4 % Cream KIT 1 APPL TOPICAL (11:36)
[2023-02-04 12:19] LABS: MANUAL DIFF FLAG NO
[2023-02-04 12:21] LABS: Basophils Percent Auto 0.2 % (0-2); Eosinophils Absolute Auto 0.1 X10*3/uL (0.0-0.4); Eosinophils Percent Auto 0.5 % (0-4); Hematocrit 31.8 % (37.0-47.0); Hemoglobin 10.3 g/dl (12.0-16.0); Imm Gran Abs Auto 0.05 X10*3/uL (0.00-0.03); Imm Gran Pct Auto 0.4 % (0.0-0.4); Lymphocytes Absolute Auto 1.3 X10*3/uL (1.2-4.9); Lymphocytes Percent Auto 10.6 % (20-40); Mean Corpuscular HGB Conc 32.4 g/dl (31.0-35.0); Mean Corpuscular Hemoglobin 28.7 pg (27.0-33.0); Mean Corpuscular Volume 88.6 fL (80.0-98.0); Mean Platelet Volume 9.4 fL (9.4-12.3); Monocytes Absolute Auto 0.7 X10*3/uL (0.1-1.2); Neutrophils Absolute Auto 9.8 x10*3/uL (2.0-8.3); Neutrophils Percent Auto 82.3 % (45-73); Platelet Count 371 X10*3/uL (160-400); Red Blood Count 3.59 X10*6/uL (4.20-5.50); Red Cell Distribution Width 12.5 % (11.0-16.0); White Blood Count 11.9 X10*3/uL (4.8-10.8)
[2023-02-04] MEDS: Piperacillin Sodium/Tazobactam 3.375 GM in 0.9 % Sodium Chloride 50 ML IV (12:29)
[2023-02-04 12:33] LABS: Lactic Acid 0.8 mmol/L (0.5-2.0)
[2023-02-04] MEDS: Ketorolac Tromethamine 30 MG/ML VIAL IVPUSH (12:33)
[2023-02-04 12:37] LABS: Alanine Aminotransferase 10 U/L (0-31); Albumin Level 3.6 g/dL (3.5-5.0); Alkaline Phosphatase 73 U/L (39-117); Anion Gap 13 (12-20); Aspartate Amino Transferase 17 U/L (5-31); Bilirubin Direct 0.2 mg/dL (0.0-0.5); Bilirubin Total 0.3 mg/dL (0.0-1.0); Blood Urea Nitrogen 17 mg/dL (9-16); Calcium 9.2 mg/dL (8.4-10.2); Carbon Dioxide 26 mmol/L (22-29); Chloride 104 mmol/L (96-108); Creatinine Clr Calc Pharmacy 68.9; Estimated Glomerular Filt Rate > 60; Glucose Random 88 mg/dL (60-115); Potassium 3.9 mmol/L (3.3-5.1); Sodium 139 mmol/L (135-145); Total Protein 7.7 g/dL (6.5-8.0)
[2023-02-04 12:43] LABS: HCG Quantitative 15 mIU/mL
[2023-02-04] MEDS: Lidocaine HCl 1 % MPF 2 ML VIAL INFILTRATI (12:46)
[2023-02-04] MEDS: iohexoL 350 MG/ML 100 ML INFUS..BTL 85 ML IV (13:10)
[2023-02-04] MEDS: 0.9 % Sodium Chloride 1,000 ML 999 ML IV (13:18)
[2023-02-04] MEDS: vancomycin HCL 1,250 MG in 0.9 % Sodium Chloride 250 ML 166.67 MG IV (13:18)
--- NOTE | 2023-02-04 14:05 | PC.NURSE ---
pt refused second set of blood cultures- pt is a difficult stick with significant PMHx of IVDA. this nurse was able to obtain initial set- as well as basic labs and 22g iv in left hand. CT imaging with contrast was obtained. pt rec 1L IVF infusing per order, Vanco 1250 infusing as well - pt rec 3.375gm zosyn and has been able to tolerate po.
[2023-02-04 14:46] LABS: Appearance Urine Clear; Color Urine Yellow; Glucose Urine UA Negative (Negative); Leukocyte Esterase Urine Negative (Negative); Nitrite Urine Negative (Negative); PH 5.5 (5.0-9.0); UMIC TRIGGER UACC YES; Urine Blood Negative (Negative); Urine Ketones Negative (Negative); Urine Protein 30 (1+) mg/dL (Neg-Trace)
[2023-02-04 14:56] LABS: UPreg QC Valid YES; Urine Pregnancy NEGATIVE (NEGATIVE)
[2023-02-04 15:00] LABS: Bacteria Urine 2+ (None Seen); Hyaline Casts Urine 0-2 /LPF (0-2); RBC Urine 0-2 /HPF (0-2); Specific Gravity - Urine >= 1.030 (1.005-1.025); WBC Urine 0-5 /HPF (0-5)
[2023-02-04 16:02] VITALS: BP 131/73; PULSE 71; RESP 15; TEMP 36.1; O2SAT 100
== END 2023-02-04 16:21 | disposition left against medical advice (07) ==
PROVIDERS: Nurse Practitioner Family; Emergency Provider Emergency Medicine
DX: L02.512 Cutaneous abscess of left hand (principal); L03.114 Cellulitis of left upper limb; M79.642 Pain in left hand
CPT/HCPCS: 10060; 36415; 73201; 80048; 80076; 81001; 81025; 82550; 83605; 84702; 85025; 87040; 87070; 87205; 96361; 96365; 96375; 99284; J1885; J2543; J3371; Q9967

== ENCOUNTER 2023-02-06 14:52 | Emergency (ER) | payer SELFPAY ==
[2023-02-06 15:18] VITALS: BP 109/57; PULSE 69; RESP 16; TEMP 36.2; O2SAT 96
--- NOTE | 2023-02-06 15:18 | ED_ITS ---
HPI - Skin/Abscess/Foreign Bdy General Chief complaint: Wound/Laceration Stated complaint: Cyst right hand - seen 2 days ago Time Seen by Provider: 02/06/23 15:25 Source: patient, RN notes reviewed and old records reviewed Mode of arrival: ambulatory History of Present Illness HPI narrative: 47-year-old female with a past medical history of IVDA, right hand abscess with concerns of tenosynovitis seen and treated in our ED on 02/04 s/p I&D presenting to the ED today for wound check and packing removal. Admission was recommended at that time however patient left AMA. States overall area much improved, reports compliance with both antibiotics. Denies fever/chills, continue drainage, decreased ROM MD complaint: abscess/boil Related Data Previous Rx's Medication Instructions Recorded cyclobenzaprine 10 mg tablet 10 mg PO TID PRN muscle spasm #18 01/27/21 tabs naproxen 500 mg tablet 500 mg PO BID PRN pain #20 tabs 01/27/21 cyclobenzaprine 10 mg tablet 10 mg PO TID PRN muscle spasm #14 09/23/21 tabs ibuprofen 600 mg tablet 600 mg PO Q6H PRN pain #30 tabs 09/23/21 lidocaine 4 % topical patch 1 patch topical DAILY PRN pain #10 09/23/21 ea acetaminophen 500 mg capsule 1,000 mg (2 x 500 mg) PO TID PRN 04/14/22 pain #20 caps oxycodone 5 mg tablet 5 mg PO Q6H PRN pain #10 tabs 04/14/22 [id number] 1 cap PO TID PRN headache #8 caps 05/24/22 50 mg-300 mg-40 mg capsule (Fioricet) cyclobenzaprine 10 mg tablet 10 mg PO TID PRN muscle spasm #14 12/03/22 tabs lidocaine 5 % topical patch 1 patch topical DAILY #15 ea 12/03/22 cephalexin 500 mg capsule 500 mg PO BID #20 caps 02/04/23 doxycycline monohydrate 100 mg 100 mg PO BID #20 caps 02/04/23 capsule Allergies Allergy/AdvReac Type Severity Reaction Status Date / Time metoclopramide [From REGLAN] Allergy Intermediate ANAPHYLAXIS Verified 06/06/22 17:18 Review of Systems 2 Review of Systems: Constitutional: No Fever, No Chills ENT/Mouth: No Ear Pain, No Nasal Congestion, No sore throat Cardiovascular: No Chest Pain, No SOB Respiratory: No Cough Gastrointestinal: No Nausea, No Vomiting, No Diarrhea, No Constipation, No Abdominal pain Musculoskeletal: No joint pain, No Myalgias, No Joint Swelling Skin: + Skin Lesions, No rash Neuro: No Weakness, No Numbness, No Paresthesias Yes all other systems are reviewed and are negative Constitutional: Constitutional: Reports as per [facility] Past Medical History Attestation statement: The following information was validated with the patient. Source: old records reviewed Medical History No pertinent past medical history Social History Social History Alcohol intake: never Patient Tobacco Use Status: Never used Tobacco Physical Exam 2 Vital Signs: Vital Signs: Last Vital Signs Temp 97.1 F 02/06/23 15:18 Pulse 69 02/06/23 15:18 Resp 16 02/06/23 15:18 BP 109/57 L 02/06/23 15:18 Pulse Ox 96 02/06/23 15:18 O2 Del Method Room Air 02/06/23 15:18 BMI result Body Mass Index 2.0 Const: General: cooperative, healthy appearing and no acute distress O rientation/consciousness: patient oriented x3 Limitations: no limitations HEENT: Head: Yes normal to inspection and Yes atraumatic Ears: hearing grossly normal bilaterally General nose exam: Normal external nose present Face and sinus: Yes normal facial exam Eyes: General: appearance normal, both eyes and all related structures EOM: EOMs intact bilaterally Neck: Neck: Yes normal visual inspection and Yes no meningeal signs Resp: Effort & Inspection: normal respiratory effort and no respiratory distress Cardio: Rate: regular rate Skin: Other: Please refer to images above. Healing abscess with packing in place, packing removed. Minimal surrounding erythema, mild swelling. Tender to palpation. No fluctuance/induration or expressible drainage. Full range of motion intact to all digits and wrist. Neurovascular intact. Rashes: no rashes Neuro: General: patient oriented x3, tone normal and no meningeal signs C ranial nerves: Yes CN's II-XII intact bilaterally Gait exam (Neuro): Normal gait present Extrem: General: Yes normal to inspection Medical Decision Making Medical Decision Making MDM Narrative: 47-year-old female with a past medical history of IVDA, right hand abscess with concerns of tenosynovitis seen and treated in our ED on 02/04 s/p I&D presenting to the ED today for wound check and packing removal. On exam vital signs stable, NAD, nontoxic appearing, appropriately healing abscess/cellulitis with packing removed today in the emergency department. Patient reports compliance with antibiotics. Discussed again recommended admission during previous day, and needed close follow-up with Hand surgery/Wound Care. Stressed importance of completing antibiotics. Patient verbalized understanding. New dressing applied Results discussed with patient including worrisome signs and symptoms and strict return precautions, and when to return to the emergency department. They verbalized understanding and feel safe for discharge at this time. Differential Diagnosis Differential Diagnoses: The differential diagnosis associated with the presentation includes As above Admission/Observation Consideration of admission/observation: Escalation of care including admission/observation considered Lab Data MDM Lab Attestation statement: I reviewed the patient's lab results. Radiology Impression Discussion of test interpretation with radiology: I have reviewed the radiologist's reading. External Record Review External record reviewed: Inpatient record, Office record, Outpatient record, Prior outpatient labs, Prior outpatient radiology, Primary care record and Outside ED record Tests considered The following testing was considered but not selected: As above Prescription Management I considered prescription management with: Pain Medication and Antibiotic Social Determinants Patient?s care significantly limited by Social Determinants of Health including: Alcoholism and drug addiction in family and Problems related to primary support group Procedures Procedure Narrative Procedure Narrative: Abscess packing removal: Complete packing removed No complications Dressing applied Discharge Plan Discharge Clinical Impression: Visit for wound check, Abscess packing removal Patient Disposition: Home, Self-Care Instructions: Abscess Follow-up (ED), Warm Compress or Soak (ED) Additional Instructions: continue taking previous antibiotics Apply warm compresses at home FOLLOW-UP WITH HAND SPECIALIST AND WOUND CARE If swelling persist/recurs, redness worsens, your unable to move her hand or have fever return to the Prescriptions: No Action cyclobenzaprine 10 mg tablet 10 mg PO TID PRN (Reason: muscle spasm) Qty: 14 0RF lidocaine 4 % adhesive patch,medicated 1 patch topical DAILY PRN (Reason: pain) Qty: 10 0RF Rx Instructions: may leave on for up to 12 hrs ibuprofen 600 mg tablet 600 mg PO Q6H PRN (Reason: pain) Qty: 30 0RF acetaminophen 500 mg capsule 1,000 mg PO TID PRN (Reason: pain) Qty: 20 0RF oxycodone 5 mg tablet 5 mg PO Q6H PRN (Reason: pain) Qty: 10 0RF Rx Instructions: Partial Fill upon patient request. naproxen 500 mg tablet 500 mg PO BID PRN (Reason: pain) Qty: 20 0RF cyclobenzaprine 10 mg tablet 10 mg PO TID PRN (Reason: muscle spasm) Qty: 18 0RF Rx Instructions: side effect is drowsiness. Do not take at work or while driving. [id number] [Fioricet] 50-300-40 mg capsule 1 cap PO TID PRN (Reason: headache) Qty: 8 0RF doxycycline monohydrate 100 mg capsule 100 mg PO BID Qty: 20 0RF cephalexin 500 mg capsule 500 mg PO BID Qty: 20 0RF cyclobenzaprine 10 mg tablet 10 mg PO TID PRN (Reason: muscle spasm) Qty: 14 0RF lidocaine 5 % adhesive patch,medicated 1 patch topical DAILY Qty: 15 0RF Rx Instructions: leave on most painful area for up to 12 hrs Referrals: [facility] – [place] Wound Care Management [Provider Group] Pamela Valdivia MD [Physician] - 3 days
== END 2023-02-06 15:44 | disposition home or self-care (01) ==
PROVIDERS: Emergency Provider Emergency Medicine
DX: Z48.01 Encounter for change or removal of surgical wound dressing (principal)
CPT/HCPCS: 99282

== ENCOUNTER 2023-12-01 06:30 | Emergency (ER) | payer SELFPAY | END 2023-12-01 07:33 | disposition left against medical advice (07) | PROVIDERS: Emergency Provider Emergency Medicine | DX: G43.909 Migraine, unspecified, not intractable, without status migrainosus (principal) ==

== ENCOUNTER 2024-04-07 10:18 | Emergency (ER) | payer MEDICAID, SELFPAY ==
[2024-04-07 10:39] VITALS: BP 133/67; PULSE 105; RESP 20; TEMP 37.3; O2SAT 98; BMI 23.4
[2024-04-07 11:14] LABS: MANUAL DIFF FLAG NO
[2024-04-07 11:15] LABS: Basophils Percent Auto 0.2 % (0-2); Eosinophils Absolute Auto 0.1 X10*3/uL (0.0-0.4); Eosinophils Percent Auto 1.2 % (0-4); Hematocrit 35.2 % (37.0-47.0); Hemoglobin 11.9 g/dl (12.0-16.0); Imm Gran Abs Auto 0.06 X10*3/uL (0.00-0.03); Imm Gran Pct Auto 0.5 % (0.0-0.4); Lymphocytes Absolute Auto 1.3 X10*3/uL (1.2-4.9); Lymphocytes Percent Auto 10.9 % (20-40); Mean Corpuscular HGB Conc 33.8 g/dl (31.0-35.0); Mean Corpuscular Hemoglobin 29.4 pg (27.0-33.0); Mean Corpuscular Volume 86.9 fL (80.0-98.0); Mean Platelet Volume 9.1 fL (9.4-12.3); Monocytes Absolute Auto 0.7 X10*3/uL (0.1-1.2); Monocytes Percent Auto 5.9 % (2-11); Neutrophils Absolute Auto 9.7 x10*3/uL (2.0-8.3); Neutrophils Percent Auto 81.3 % (45-73); Platelet Count 360 X10*3/uL (160-400); Red Blood Count 4.05 X10*6/uL (4.20-5.50); Red Cell Distribution Width 13.3 % (11.0-16.0); White Blood Count 11.9 X10*3/uL (4.8-10.8)
[2024-04-07 11:32] LABS: Lactic Acid 0.9 mmol/L (0.5-2.0)
[2024-04-07 11:33] LABS: Alanine Aminotransferase 10 U/L (0-31); Albumin Level 3.7 g/dL (3.5-5.0); Alkaline Phosphatase 79 U/L (39-117); Anion Gap 8 (12-20); Aspartate Amino Transferase 19 U/L (5-31); Bilirubin Total 0.6 mg/dL (0.0-1.0); Blood Urea Nitrogen 9 mg/dL (9-16); Calcium 8.6 mg/dL (8.4-10.2); Carbon Dioxide 26 mmol/L (22-29); Chloride 109 mmol/L (96-108); Creatinine Clr Calc Pharmacy 73.4; Estimated Glomerular Filt Rate > 60; Glucose Random 103 mg/dL (60-115); Potassium 4.1 mmol/L (3.3-5.1); Sodium 139 mmol/L (135-145); Total Protein 7.6 g/dL (6.5-8.0)
--- NOTE | 2024-04-07 18:44 | ED_ITS ---
HPI - Skin/Abscess/Foreign Bdy General Chief complaint: Skin/Abscess/Foreign Body Stated complaint: Cyst L arm Time Seen by Provider: 04/07/24 18:44 Source: patient Mode of arrival: ambulatory Limitations: no limitations History of Present Illness ED Provider: HPI narrative: Patient IVDA user complaining of swelling and abscess in the left forarm for last 5 days getting worse patient is still using IV drug history of similar abscess in the past no fever no chills Related Data Previous Rx's ?Medication ?Instructions ?Recorded cyclobenzaprine 10 mg tablet 10 mg PO TID PRN muscle spasm #18 01/27/21 tabs naproxen 500 mg tablet 500 mg PO BID PRN pain #20 tabs 01/27/21 cyclobenzaprine 10 mg tablet 10 mg PO TID PRN muscle spasm #14 09/23/21 tabs ibuprofen 600 mg tablet 600 mg PO Q6H PRN pain #30 tabs 09/23/21 lidocaine 4 % topical patch 1 patch topical DAILY PRN pain #10 09/23/21 ea acetaminophen 500 mg capsule 1,000 mg (2 x 500 mg) PO TID PRN 04/14/22 pain #20 caps oxycodone 5 mg tablet 5 mg PO Q6H PRN pain #10 tabs 04/14/22 [id number]-[id number] 1 cap PO TID PRN headache #8 caps 05/24/22 50 mg-300 mg-40 mg capsule (Fioricet) cyclobenzaprine 10 mg tablet 10 mg PO TID PRN muscle spasm #14 12/03/22 tabs lidocaine 5 % topical patch 1 patch topical DAILY #15 ea 12/03/22 cephalexin 500 mg capsule 500 mg PO BID #20 caps 02/04/23 doxycycline monohydrate 100 mg 100 mg PO BID #20 caps 02/04/23 capsule cephalexin 500 mg capsule 500 mg PO QID 10 days #40 caps 04/07/24 doxycycline hyclate 100 mg tablet 100 mg PO BID #20 tabs 04/07/24 Allergies Allergy/AdvReac Type Severity Reaction Status Date / Time metoclopramide [From REGLAN] Allergy Intermediate ANAPHYLAXIS Verified 04/07/24 10:40 Review of Systems 2 Review of Systems: Yes all other systems are reviewed and are negative PMFSH Past Medical History Medical History No pertinent past medical history Social History Social History Alcohol intake: never Patient Tobacco Use Status: Never used Tobacco Advance Directives: No Advance Directives Information Provided: No Physical Exam 2 Vital Signs: Vital Signs: Last Vital Signs Temp 97.7 F 04/07/24 21:07 Pulse 94 04/07/24 21:07 Resp 15 04/07/24 21:07 BP 150/82 H 04/07/24 21:07 Pulse Ox 97 04/07/24 21:07 O2 Del Method Room Air 04/07/24 21:07 BMI result Body Mass Index 23.4 Appearance: Alert. Oriented X3. No acute distress. ENT: Pharynx normal. Oral Mucosa moist Neck: Normal inspection. Neck supple. CVS: Normal heart rate and rhythm. Pulses normal. Respiratory: No respiratory distress. Equal air entry bilateral, no wheezing/rales/rhonchi Abdomen: Soft and nontender. Bowel sounds are present, Skin: Skin warm and dry. Erythematous swelling abscess right forearm Extremities: No lower extremity edema. No calf tenderness Neuro: Oriented X 3. No motor deficit. Medications Administered Discontinued Medications Generic Name Dose Route Start Last Admin Trade Name Freq PRN Reason Stop Dose Admin Doxycycline Monohydrate 100 mg 04/07/24 18:58 04/07/24 19:07 Doxycycline Monohydrate 100 Mg Capsule PO 04/07/24 18:59 100 mg ONCE ONE Administration Vancomycin HCl 1,000 mg/ 270 mls @ 270 mls/hr 04/07/24 18:58 04/07/24 20:07 Sodium Chloride IV 04/07/24 19:57 Infused ONCE ONE Infusion Lidocaine HCl 30 ml 04/07/24 18:58 04/07/24 19:07 Lidocaine Hcl 1 % Mpf 5 Ml Vial INFILTRATI 04/07/24 18:59 30 ml ONCE ONE Administration Medical Decision Making Medical Decision Making MDM Narrative: Patient IVDA user with abscess and cellulitis of the left forearm status post I and D done 1 g of vancomycin was given in the ER will prescribe doxycycline and cephalexin advised to follow up with wound cleaned Lab Data [facility] Lab Attestation statement: I reviewed the patient's lab results. 04/07/24 11:05 04/07/24 11:05 Labs: Lab Results 04/07/24 Range/Units 11:05 WBC 11.9 H (4.8-10.8) X10*3/uL RBC 4.05 L (4.20-5.50) X10*6/uL Hgb 11.9 L (12.0-16.0) g/dl Hct 35.2 L (37.0-47.0) % MCV 86.9 (80.0-98.0) fL MCH 29.4 (27.0-33.0) pg MCHC 33.8 (31.0-35.0) g/dl RDW 13.3 (11.0-16.0) % Plt Count 360 (160-400) X10*3/uL MPV 9.1 L (9.4-12.3) fL Immature Gran % (Auto) 0.5 H (0.0-0.4) % Neut % (Auto) 81.3 H (45-73) % Lymph % (Auto) 10.9 L (20-40) % Desha % (Auto) 5.9 (2-11) % Eos % (Auto) 1.2 (0-4) % Baso % (Auto) 0.2 (0-2) % Lymph # (Auto) 1.3 (1.2-4.9) X10*3/uL Desha # (Auto) 0.7 (0.1-1.2) X10*3/uL Eos # (Auto) 0.1 (0.0-0.4) X10*3/uL Baso # (Auto) 0.0 (0.0-0.2) X10*3/uL Abs Immat Gran (auto) 0.06 H (0.00-0.03) X10*3/uL Absolute Neuts (auto) 9.7 H (2.0-8.3) x10*3/uL Absolute Nucleated RBC 0.000 (0.0-0.012) X10*3/uL Nucleated RBC % (auto) 0.0 (0.0-0.2) /100WBC Sodium 139 (135-145) mmol/L Potassium 4.1 (3.3-5.1) mmol/L Chloride 109 H (96-108) mmol/L Carbon Dioxide 26 (22-29) mmol/L Anion Gap 8 L (12-20) BUN 9 (9-16) mg/dL Creatinine 0.68 (0.5-1.4) mg/dL Estim Creat Clear Calc 73.4 Estimated GFR > 60 Random Glucose 103 (60-115) mg/dL Lactic Acid 0.9 (0.5-2.0) mmol/L Calcium 8.6 D (8.4-10.2) mg/dL Total Bilirubin 0.6 (0.0-1.0) mg/dL AST 19 (5-31) U/L ALT 10 (0-31) U/L Alkaline Phosphatase 79 (39-117) U/L Total Protein 7.6 (6.5-8.0) g/dL Albumin 3.7 (3.5-5.0) g/dL Procedures Abscess I/D Site: upper extremity Side (if applicable): left Local Anesthetic: lidocaine 1% Amount of anesthesia used (mL): 30 Technique: incised with blade Amount of fluid expressed (mL): 30 Sent for culture/gram staining?: Yes Irrigation: Yes Packing used?: none Discharge Plan Discharge Clinical Impression: Abscess of skin or subcutaneous tissue, Cellulitis Patient Disposition: Home, Self-Care Instructions: Cellulitis (ED), Abscess Incision and Drainage (DC) Additional Instructions: Local care as advised Follow up with wound cleaned Take antibiotics as prescribed Do not use IV drugs Keep your left arm elevated Report to the ER if worsening of the swelling/fever/increased pain Prescriptions: New cephalexin 500 mg capsule 500 mg PO QID 10 Days Qty: 40 0RF doxycycline hyclate 100 mg tablet 100 mg PO BID Qty: 20 0RF No Action cyclobenzaprine 10 mg tablet 10 mg PO TID PRN (Reason: muscle spasm) Qty: 14 0RF lidocaine 4 % adhesive patch,medicated 1 patch topical DAILY PRN (Reason: pain) Qty: 10 0RF Rx Instructions: may leave on for up to 12 hrs ibuprofen 600 mg tablet 600 mg PO Q6H PRN (Reason: pain) Qty: 30 0RF acetaminophen 500 mg capsule 1,000 mg PO TID PRN (Reason: pain) Qty: 20 0RF oxycodone 5 mg tablet 5 mg PO Q6H PRN (Reason: pain) Qty: 10 0RF Rx Instructions: Partial Fill upon patient request. naproxen 500 mg tablet 500 mg PO BID PRN (Reason: pain) Qty: 20 0RF cyclobenzaprine 10 mg tablet 10 mg PO TID PRN (Reason: muscle spasm) Qty: 18 0RF Rx Instructions: side effect is drowsiness. Do not take at work or while driving. [id number]-[id number] [Fioricet] 50-300-40 mg capsule 1 cap PO TID PRN (Reason: headache) Qty: 8 0RF doxycycline monohydrate 100 mg capsule 100 mg PO BID Qty: 20 0RF cephalexin 500 mg capsule 500 mg PO BID Qty: 20 0RF cyclobenzaprine 10 mg tablet 10 mg PO TID PRN (Reason: muscle spasm) Qty: 14 0RF lidocaine 5 % adhesive patch,medicated 1 patch topical DAILY Qty: 15 0RF Rx Instructions: leave on most painful area for up to 12 hrs Referrals: Timmy Otoole MD [Physician] - Interventions: LWBS Worksheet Last Done: 04/07/24 16:32 ED Discharge Assessment Last Done: 04/07/24 21:07 Discharge Date/Time: 04/07/24 21:08 Print Language: [place]raini
[2024-04-07 18:45] VITALS: BP 150/82; PULSE 94; RESP 15; TEMP 36.5; O2SAT 97
[2024-04-07] MEDS: Lidocaine HCl 1 % MPF 5 ML VIAL 30 ML INFILTRATI (19:07)
[2024-04-07] MEDS: Doxycycline Monohydrate 100 MG CAPSULE PO (19:07)
[2024-04-07] MEDS: vancomycin HCL 1,000 MG in 0.9 % Sodium Chloride 250 ML 270 MG IV (19:07)
[2024-04-07 21:07] VITALS: BP 150/82; PULSE 94; RESP 15; TEMP 36.5; O2SAT 97
== END 2024-04-07 21:08 | disposition home or self-care (01) ==
PROVIDERS: Student in an Organized Health Care Education/Training Program; Emergency Provider Internal Medicine
DX: L02.414 Cutaneous abscess of left upper limb (principal); L03.114 Cellulitis of left upper limb
CPT/HCPCS: 10060; 36415; 80053; 83605; 85025; 87040; 87070; 87205; 96365; 99283; 99284; J2003; J3370